=== PATIENT | female | born 1970 | race Caucasian/White ===

== ENCOUNTER 2020-01-28 13:50 | Outpatient (CLI) | payer BC, SELFPAY ==
--- NOTE | 2020-01-28 13:57 | XR_ITS ---
WS: [id number] CHEST 2 VIEWS HISTORY: CHRONIC COUGH, BRONCHITIS, ACUTE COMPARISON: None available. Lungs: Clear with no abnormality. No pleural effusion or pneumothorax. Cardiac size: Normal. Mediastinum/Aorta: Normal mediastinum. Bones: Mild thoracolumbar scoliosis. XR/XR chest 2V* [id number] IMPRESSION: Normal chest.
== END 2020-01-28 13:51 | disposition home or self-care (01) ==
LOC: RADWPI 13:55
PROVIDERS: PCP Electrodiagnostic Medicine; Visit Provider Electrodiagnostic Medicine
DX: J20.9 Acute bronchitis, unspecified (principal); R05 Cough
CPT/HCPCS: 71046

== ENCOUNTER 2021-11-27 14:14 | Outpatient (CLI) | payer BC, SELFPAY ==
[2021-11-27 14:05] VITALS: BP 130/88; PULSE 99; RESP 20; TEMP 36.6; O2SAT 97; BMI 25.6
[2021-11-27 14:50] VITALS: BP 135/91; PULSE 93; RESP 18; TEMP 36.6; O2SAT 96
[2021-11-27 15:50] VITALS: BP 133/94; PULSE 80; RESP 18; TEMP 36.6; O2SAT 94
== END 2021-11-27 14:15 | disposition home or self-care (01) ==
LOC: OPS 14:17
PROVIDERS: PCP Electrodiagnostic Medicine; Visit Provider Nurse Practitioner
DX: U07.1 COVID-19 (principal)
CPT/HCPCS: 96365